=== PATIENT | female | born 1990 | race Hispanic/Latino ===

== ENCOUNTER 2023-12-07 15:14 | Emergency (ER) | payer OTHER ==
[~2023-12-07] VITALS: Ht 162.6 cm; Wt 98.5 kg
[2023-12-07] MEDS ORDERED: PNV1TABL16 PO (15:28)
[2023-12-07] MEDS ORDERED: CABE0.5T PO (15:28)
[2023-12-07 16:49] LABS: BASO % 0.4 % (0.0-1.0); EOS # 0.1 10^3/uL (0.0-0.5); EOS % 1.3 % (0.0-3.0); HEMATOCRIT 33.5 % (36.0-47.0); HEMOGLOBIN 10.2 g/dl (12.0-15.5); LYMPH # 3.2 10^3/uL (1.5-5.0); LYMPH % 48.3 % (24.0-44.0); MEAN CORPUSCULAR HEMOGLOBIN 21.8 pg (27.0-33.0); MEAN CORPUSCULAR HGB CONC 30.4 g/dl (32.0-36.5); MEAN CORPUSCULAR VOLUME 71.7 fl (80.0-96.0); MONO # 0.4 10^3/uL (0.0-0.8); MONO % 6.6 % (2.0-8.0); NEUTROPHILS # 2.9 10^3/uL (1.5-8.5); NEUTROPHILS % 43.3 % (36.0-66.0); PLATELET COUNT, AUTOMATED 282 10^3/uL (150-450); RED BLOOD COUNT 4.67 10^6/uL (4.00-5.40); WHITE BLOOD COUNT 6.7 10^3/uL (4.0-10.0)
[2023-12-07] MEDS: MECLIZINE 25 MG TABLET PO ONE (17:06)
[2023-12-07] MEDS: NS 1,000 ML IV ONE (17:07)
[2023-12-07] MEDS: METOCLOPRAMIDE INJ 10MG/2ML VIAL IV ONE (17:07)
[2023-12-07 17:12] LABS: BLOOD UREA NITROGEN 9 MG/DL (9-23); CALCIUM LEVEL 8.6 MG/DL (8.5-10.1); CARBON DIOXIDE LEVEL 28 MMOL/L (20-31); CHLORIDE LEVEL 108 MMOL/L (98-107); CREATININE FOR GFR 0.71 MG/DL (0.55-1.30); GLOMERULAR FILTRATION RATE > 60.0 (>60); GLUCOSE, FASTING 84 MG/DL (60-100); POTASSIUM SERUM 4.4 MMOL/L (3.5-5.1); SODIUM LEVEL 139 MMOL/L (136-145)
[2023-12-07 17:13] LABS: CK-MB VALUE MASS < 1.0 NG/ML (<3.6)
[2023-12-07 17:17] LABS: FREE T4 1.06 NG/DL (0.89-1.76); THYROID STIMULATING HORMONE 0.973 uIU/ML (0.55-4.78)
[2023-12-07 17:19] LABS: CPK CREATINE PHOSPHOKINASE 90 U/L (34-145); MB/CK RELATIVE INDEX 1.11 (< OR =4)
[2023-12-07 18:15] LABS: CPK CREATINE PHOSPHOKINASE 87 U/L (34-145)
[2023-12-07 18:16] LABS: CK-MB VALUE MASS < 1.0 NG/ML (<3.6); MB/CK RELATIVE INDEX 1.14 (< OR =4)
[2023-12-07] MEDS ORDERED: MECL-209 PO (19:46)
[2023-12-07] MEDS ORDERED: HOLTER MONITOR XX (19:47)
[2023-12-07 19:59] VITALS: BP 149/69; TEMP 97; O2SAT 100
== END 2023-12-07 20:03 | disposition home or self-care (01) ==
LOC: M ED 15:14
DX: R42 Dizziness and giddiness (principal); R00.2 Palpitations
CPT/HCPCS: 70450; 71045; 80048; 82550; 82553; 83735; 84439; 84443; 84484; 85025; 85379; 93005; 93041; 96374; 99284; J2765

== ENCOUNTER 2023-12-12 15:12 | Outpatient (CLI) | payer OTHER, SELFPAY ==
[~2023-12-12 15:12] MED LIST: ALBUTEROL SULFATE 2.5MG/0.5ML INH NEB SOLN INH PRN; CABE0.5T PO; EPINEPHrine INJ 1 MG/ML 1ML AMP IM PRN; HOLTER MONITOR XX; MECL-209 PO; NS 1,000 ML IV SCH; PNV1TABL16 PO; diphenhydrAMINE 50MG/ML VIAL IV PRN; methylPREDNISolone 125MG 2ML VIAL IV PRN
[2023-12-12 15:20] VITALS: BP 125/72; O2SAT 100
[2023-12-12] MEDS: FERRIC CARBOXYMALTOSE INJ 750 MG in NS 250 ML (>50kg) IV ONE (15:28)
[2023-12-12 17:20] VITALS: BP 122/65; O2SAT 99
== END 2023-12-12 17:20 ==
LOC: M INFU 15:12
PROVIDERS: ATTEND Obstetrics & Gynecology
DX: D50.9 Iron deficiency anemia, unspecified (principal)
CPT/HCPCS: 96365; J1439

== ENCOUNTER 2023-12-19 13:15 | Outpatient (CLI) | payer OTHER ==
[~2023-12-19] VITALS: Ht 162.6 cm; Wt 93.6 kg
[~2023-12-19 13:15] MED LIST changes: -NS 1,000 ML IV SCH
[2023-12-19] MEDS ORDERED: NS 1,000 ML IV SCH (15:00)
[2023-12-19 15:15] VITALS: BP 127/57; O2SAT 100
[2023-12-19] MEDS: FERRIC CARBOXYMALTOSE INJ 750 MG in NS 250 ML (>50kg) IV ONE (15:22)
[2023-12-19 16:40] VITALS: BP 126/66; O2SAT 99
== END 2023-12-19 16:40 ==
LOC: M INFU 13:15 → EDUNIT# 15:00 → M INFU 16:40
PROVIDERS: ATTEND Obstetrics & Gynecology
DX: D50.9 Iron deficiency anemia, unspecified (principal)
CPT/HCPCS: 96365; J1439